=== PATIENT | female | born 1955 | race Hispanic/Latino ===

== ENCOUNTER 2022-05-23 12:41 | Emergency (ER) | payer MEDICARE ==
[~2022-05-23] VITALS: Ht 152.4 cm; Wt 63.0 kg
[2022-05-23] MEDS ORDERED: PREDNISONE 20 MG TAB PO ONE (13:15)
[2022-05-23] MEDS ORDERED: ALBUTEROL/IPRATROPIUM 3 ML NEB NEB ONE (13:15)
[2022-05-23] MEDS ORDERED: ALBUTEROL2.5 MG/0.5 PO (13:48)
[2022-05-23] MEDS ORDERED: PREDNISONE50 MG PO (13:48)
[2022-05-23 14:24] VITALS: BP 117/58
== END 2022-05-23 14:20 | disposition home or self-care (01) ==
LOC: ER 12:48
DX: R05.9 Cough, unspecified (principal); J40 Bronchitis, not specified as acute or chronic; Z85.3 Personal history of malignant neoplasm of breast
CPT/HCPCS: 71045; 99283; J7512